=== PATIENT | female | born 1930 | race Caucasian/White ===

== ENCOUNTER 2018-06-06 14:59 | Inpatient (IN) | payer MEDICARE, BC ==
[~2018-06-06] VITALS: Ht 160 cm; Wt 97.2 kg
[~2018-06-06 14:59] MED LIST: ADVICOR; ADVICOR PO; ASPIRIN 32325 MG/TAB PO; CINNAMON; CINNAMON PO; MACROBID 1100 MG/CAP PO; PROMETRIUM PO; PROMETRIUM100 MG/CAP PO; SYNTHROID0.2 MG/TAB PO
[2018-06-06 15:52] LABS: BASO % 0.3 % (0.0-2.0); EOS # 0.7 (0.0-0.7); EOS % 5.9 % (0-4.0); GRAN # 7.4 (1.4-6.5); GRAN % 67.2 % (42.2-75.2); LYMPH # 1.7 (1.2-3.4); LYMPH % 15.8 % (20.0-51.0); MEAN CELL VOLUME 96 fl (80.0-100.0); MEAN CORPUSCULAR HEMOGLOBIN 32 pg (27.0-31.0); MEAN CORPUSCULAR HGB CONC 33 g/dl (33.0-37.0); MEAN PLATELET VOLUME 10.7 fl (7.4-10.4); MONO # 1.1 (0.1-0.6); MONO % 10.3 % (1.7-9.3); PLATELET COUNT 159 K/mm3 (130-400); RED BLOOD COUNT 3.81 M/mm3 (4.10-5.30); REDCELL DISTRIBUTION WIDTH-CV 14.4 % (11.5-14.5)
[2018-06-06 15:53] LABS: HEMATOCRIT 36.6 % (37.0-47.0)
[2018-06-06 15:58] LABS: PROTHROMBIN TIME 11.9 SECONDS (9.7-12.8)
[2018-06-06 16:01] LABS: PARTIAL THROMBOPLASTIN TIME 30.4 SECONDS (26.0-37.0)
[2018-06-06 16:04] LABS: ALBUMIN 3.4 gm/dL (3.5-5.0); BILIRUBIN,TOTAL 0.7 mg/dL (0.0-1.0); CALCIUM 9.5 mg/dL (8.4-10.2); CREATININE, serum 1.36 mg/dL (0.52-1.25); POTASSIUM 4.2 mmol/L (3.4-5.0); TOTAL PROTEIN 6.2 gm/dL (6.4-8.2)
[2018-06-06 16:13] LABS: TROPONIN-I 0.015 ng/mL (0.000-0.034)
[2018-06-06 17:45] LABS: COLLECTION METHOD CLEAN CATCH
[2018-06-06 17:52] LABS: MUCOUS Present /lpf; PH 5 (5-8); URINE APPEARANCE Hazy; URINE BACTERIA None Seen /hpf; URINE BILIRUBIN Negative (NEGATIVE); URINE BLOOD Negative (NEGATIVE); URINE COLOR Yellow; URINE GLUCOSE Negative (NEGATIVE); URINE KETONE Trace (NEGATIVE); URINE LEUKOCYTE ESTERASE Negative (NEGATIVE); URINE NITRATE Negative (NEGATIVE); URINE PROTEIN(semi-quant) 1+ (NEGATIVE); URINE RBC 0-2 /hpf; URINE UROBILINOGEN Negative (NEGATIVE)
[2018-06-06] MEDS ORDERED: PRINIVIL10 MG PO (19:12)
[2018-06-06] MEDS ORDERED: SYNTHROID 0.10.15 MG PO (19:12)
[2018-06-06] MEDS ORDERED: LIPITOR 10MG10 MG PO (19:12)
[2018-06-06] MEDS ORDERED: CALTRATE-600 W600 MG PO (19:13)
[2018-06-06] MEDS ORDERED: COQ10 PO (19:13)
[2018-06-06] MEDS ORDERED: Cranberry PO (19:13)
[2018-06-06] MEDS ORDERED: BIOTIN5000 MCG PO (19:13)
[2018-06-06] MEDS ORDERED: TUMERIC PO (19:14)
[2018-06-06] MEDS ORDERED: PRESERVISION1 SGL PO (19:14)
[2018-06-06] MEDS ORDERED: NATURE'S BLEND500 M1 PO (19:17)
[2018-06-06 20:51] LABS: THYROID STIMULATING HORMONE 3.28 uIU/mL (0.465-4.680)
[2018-06-06 21:00] VITALS: BP 110/62
[2018-06-06 21:20] VITALS: BP 97/46; PULSE 144
[2018-06-07] VITALS (7 sets, daily range): BP systolic 108–141; BP diastolic 46–81; PULSE 65–95; TEMP 97.5–98.3
[2018-06-07 04:01] LABS: BASO % 0.2 % (0.0-2.0); EOS # 0.6 (0.0-0.7); EOS % 5.7 % (0-4.0); GRAN % 71.5 % (42.2-75.2); HEMOGLOBIN 11.2 g/dl (12.5-16.0); LYMPH # 1.4 (1.2-3.4); LYMPH % 12.2 % (20.0-51.0); MEAN CELL VOLUME 97 fl (80.0-100.0); MEAN CORPUSCULAR HEMOGLOBIN 32 pg (27.0-31.0); MEAN CORPUSCULAR HGB CONC 33 g/dl (33.0-37.0); MEAN PLATELET VOLUME 10.4 fl (7.4-10.4); MONO # 1.1 (0.1-0.6); MONO % 9.7 % (1.7-9.3); PLATELET COUNT 163 K/mm3 (130-400); REDCELL DISTRIBUTION WIDTH-CV 14.4 % (11.5-14.5)
[2018-06-07 04:02] LABS: HEMATOCRIT 33.9 % (37.0-47.0)
[2018-06-07 04:18] LABS: CALCIUM 8.8 mg/dL (8.4-10.2); CREATININE, serum 1.04 mg/dL (0.52-1.25); POTASSIUM 4.1 mmol/L (3.4-5.0)
[2018-06-07] MEDS ORDERED: OMEGA-3 1000 MG1 CAP PO (09:19)
[2018-06-07] MEDS ORDERED: [UNRECOGNIZED DRUG - OTHER] PO (09:20)
[2018-06-07] MEDS ORDERED: MASON NATURAL2000 IU PO (09:21)
[2018-06-07] MEDS ORDERED: [UNRECOGNIZED DRUG - SUPPLY] ×2 (09:22→09:23)
[2018-06-07] MEDS ORDERED: XALATAN EYE DROPS OD (09:22)
[2018-06-08] VITALS (7 sets, daily range): BP systolic 113–155; BP diastolic 40–56; PULSE 69–85; TEMP 97–98.4
[2018-06-08 07:06] LABS: BASO % 0.2 % (0.0-2.0); EOS # 0.8 (0.0-0.7); EOS % 8.5 % (0-4.0); GRAN # 4.7 (1.4-6.5); GRAN % 51.5 % (42.2-75.2); HEMATOCRIT 33.9 % (37.0-47.0); HEMOGLOBIN 10.8 g/dl (12.5-16.0); LYMPH # 2.5 (1.2-3.4); LYMPH % 27.8 % (20.0-51.0); MEAN CELL VOLUME 98 fl (80.0-100.0); MEAN CORPUSCULAR HEMOGLOBIN 31 pg (27.0-31.0); MEAN CORPUSCULAR HGB CONC 32 g/dl (33.0-37.0); MEAN PLATELET VOLUME 10.8 fl (7.4-10.4); MONO % 10.7 % (1.7-9.3); PLATELET COUNT 205 K/mm3 (130-400); RED BLOOD COUNT 3.45 M/mm3 (4.10-5.30); REDCELL DISTRIBUTION WIDTH-CV 14.4 % (11.5-14.5)
[2018-06-08 07:17] LABS: CREATININE, serum 0.89 mg/dL (0.52-1.25); POTASSIUM 4.2 mmol/L (3.4-5.0)
[2018-06-09 04:35] VITALS: BP 155/76; PULSE 65; TEMP 97.2
[2018-06-09 06:28] LABS: BASO % 0.3 % (0.0-2.0); EOS # 0.5 (0.0-0.7); EOS % 4.7 % (0-4.0); GRAN # 5.7 (1.4-6.5); GRAN % 58.4 % (42.2-75.2); HEMOGLOBIN 11.3 g/dl (12.5-16.0); LYMPH # 2.4 (1.2-3.4); LYMPH % 25.1 % (20.0-51.0); MEAN CELL VOLUME 98 fl (80.0-100.0); MEAN CORPUSCULAR HEMOGLOBIN 31 pg (27.0-31.0); MEAN CORPUSCULAR HGB CONC 32 g/dl (33.0-37.0); MEAN PLATELET VOLUME 10.3 fl (7.4-10.4); MONO % 10.2 % (1.7-9.3); PLATELET COUNT 204 K/mm3 (130-400); RED BLOOD COUNT 3.62 M/mm3 (4.10-5.30); REDCELL DISTRIBUTION WIDTH-CV 14.1 % (11.5-14.5)
[2018-06-09 06:31] LABS: HEMATOCRIT 35.3 % (37.0-47.0)
[2018-06-09 06:41] LABS: CALCIUM 9.6 mg/dL (8.4-10.2); CREATININE, serum 0.92 mg/dL (0.52-1.25); POTASSIUM 4.2 mmol/L (3.4-5.0)
[2018-06-09 07:49] VITALS: BP 146/42; PULSE 71; TEMP 98.3
[2018-06-09 11:27] VITALS: BP 134/50; PULSE 70; TEMP 97.9
[2018-06-09 16:27] VITALS: BP 146/44; PULSE 67; TEMP 98.4
[2018-06-09 21:46] VITALS: BP 130/44; PULSE 68; TEMP 97.7
[2018-06-10 01:36] VITALS: BP 136/77; PULSE 76; TEMP 98.2
[2018-06-10 04:23] VITALS: BP 145/37; PULSE 70; TEMP 98
[2018-06-10 07:22] LABS: CALCIUM 9.4 mg/dL (8.4-10.2); CREATININE, serum 0.87 mg/dL (0.52-1.25); POTASSIUM 4.1 mmol/L (3.4-5.0)
[2018-06-10 07:30] LABS: HEMOGLOBIN 11.6 g/dl (12.5-16.0); MEAN CELL VOLUME 95 fl (80.0-100.0); MEAN CORPUSCULAR HEMOGLOBIN 31 pg (27.0-31.0); MEAN CORPUSCULAR HGB CONC 33 g/dl (33.0-37.0); MEAN PLATELET VOLUME 10.4 fl (7.4-10.4); PLATELET COUNT 210 K/mm3 (130-400); RED BLOOD COUNT 3.69 M/mm3 (4.10-5.30); REDCELL DISTRIBUTION WIDTH-CV 14.3 % (11.5-14.5)
[2018-06-10 07:32] LABS: HEMATOCRIT 35.2 % (37.0-47.0)
[2018-06-10 07:58] VITALS: BP 151/58; PULSE 70; TEMP 97.6
[2018-06-10] MEDS ORDERED: ASPIRIN 81M81 MG/TA2 PO (09:33)
[2018-06-10] MEDS ORDERED: LANOXIN 0.120.125 MG PO (09:33)
[2018-06-10] MEDS ORDERED: LOPRESSOR 225 MG/TAB PO (09:33)
[2018-06-10] MEDS ORDERED: TYLENOL 325MG325 MG PO (09:34)
[2018-06-10 10:43] VITALS: BP 151/58; PULSE 70; TEMP 97.6
[2018-06-10 12:40] VITALS: BP 149/54; PULSE 70; TEMP 98
== END 2018-06-10 13:16 | DRG 309 ==
LOC: COL.ER 14:59 → MEDICAL 18:22 → EDBEDREQ 19:21 → ICU 21:51 → SURG 06-07 18:05
PROVIDERS: Emergency Medicine; Internal Medicine; Nurse Practitioner Family; Physician Assistant
DX: I48.0 Paroxysmal atrial fibrillation (principal); N17.9 Acute kidney failure, unspecified; I10 Essential (primary) hypertension; E11.9 Type 2 diabetes mellitus without complications; E78.2 Mixed hyperlipidemia; Z86.718 Personal history of other venous thrombosis and embolism; Z85.3 Personal history of malignant neoplasm of breast; W18.30XA Fall on same level, unspecified, initial encounter; Z91.81 History of falling; D64.9 Anemia, unspecified; I05.0 Rheumatic mitral stenosis; E66.01 Morbid (severe) obesity due to excess calories; Z68.37 Body mass index [BMI] 37.0-37.9, adult
CPT/HCPCS: 99222-AI; 99232-AI; 99239; C9113; J1160; J1644; J7030